=== PATIENT | female | born 1945 | race Caucasian/White ===

== ENCOUNTER 2016-07-07 14:32 | Emergency (ER) | payer OTHER ==
[~2016-07-07] VITALS: Wt 54.4 kg
[~2016-07-07 14:32] MED LIST: HYDROCODONE BIT1 T11; LIPITOR80 MG PO; LORATADINE10 M1 PO; MOBIC15 MG PO; NASONEX0.05 MG/AC NS; NEXIUM40 MG PO; PERCOCET 325 MG1 TA7 PO; PROTONIX20 MG PO; SINGULAIR10 M1 PO; TRAZADONE HYDR100 MG; TRAZODONE50 MG PO; VICODIN 5/500 505 MG PO; XANAX1 MG PO; ZOLOFT100 MG PO; ZOLOFT50 MG PO
[2016-07-07 15:01] LABS: BASO % 0.2 % (0.0-1.0); HEMOGLOBIN 14.4 g/dl (12.0-16.0); IG # 0.1 10*3/uL (0.0-0.1); LYMPH # 0.9 10*3/uL (1.3-4.4); LYMPH % 8.3 % (27.0-41.0); MEAN CELL VOLUME 91.1 fl (81.0-99.0); MEAN CORPUSCULAR HGB 29.8 pg (27.0-31.0); MEAN CORPUSCULAR HGB CONC 32.7 g/dl (33.0-37.0); MEAN PLATELET VOLUME 11.6 fl (9.6-12.3); MONO # 0.7 10*3/uL (0.1-1.0); MONO % 6.3 % (3.0-9.0); NEUT # 8.9 10*3/uL (2.3-7.9); NEUT % 84.7 % (47.0-73.0); PLATELET COUNT AUTOMATED 109 10*3/uL (130-400); RED BLOOD COUNT 4.83 10*6/uL (4.10-5.10); RED CELL DISTRI WIDTH 14.6 % (0-14.5); WHITE BLOOD COUNT 10.5 10*3/uL (4.8-10.8)
[2016-07-07 15:19] LABS: POTASSIUM 3.8 mmol/L (3.5-5.1)
[2016-07-07 15:20] LABS: TROPONIN I 2.61 ng/ml (<0.5)
[2016-07-07 17:03] VITALS: BP 117/87
== END 2016-07-07 18:50 | disposition short-term general hospital (02) ==
LOC: ED 14:32
PROVIDERS: Emergency Medicine
DX: J44.1 Chronic obstructive pulmonary disease with (acute) exacerbation (principal); I24.9 Acute ischemic heart disease, unspecified; I21.4 Non-ST elevation (NSTEMI) myocardial infarction; Z88.8 Allergy status to other drugs, medicaments and biological substances

== ENCOUNTER → 2017-02-21 | Outpatient (CLI) | payer OTHER ==
[2017-02-21 17:07] LABS: HEMATOCRIT 42.2 % (37.0-47.0); HEMOGLOBIN 13.9 g/dl (12.0-16.0); MEAN CELL VOLUME 93.4 fl (81.0-99.0); MEAN CORPUSCULAR HGB 30.8 pg (27.0-31.0); MEAN CORPUSCULAR HGB CONC 32.9 g/dl (33.0-37.0); MEAN PLATELET VOLUME 10.4 fl (9.6-12.3); RED BLOOD COUNT 4.52 10*6/uL (4.10-5.10); RED CELL DISTRI WIDTH 14.1 % (0-14.5); WHITE BLOOD COUNT 7.5 10*3/uL (4.8-10.8)
[2017-02-21 17:25] LABS: ALBUMIN 3.5 gm/dl (3.1-4.5); ALKALINE PHOSPHATASE 69 U/L (45-117); BUN 10 mg/dl (7-24); CHLORIDE 110 mmol/L (98-107); CHOLESTEROL 171 mg/dL (<200); CREATININE 0.95 mg/dL (0.55-1.02); HDL CHOLESTEROL 49 mg/dl (40-60); LDL CHOLESTEROL 105 mg/dL (9-159); SGOT/AST 16 IU/L (3-35); SGPT/ALT 19 U/L (12-78); SODIUM 142 mmol/L (136-145); TOTAL PROTEIN 6.6 gm/dL (6.4-8.2); TRIGLYCERIDES 84 mg/dl (<150); VLDL CHOLESTEROL 17 mg/dL (6-40)
== END | disposition home or self-care (01) ==
LOC: LAB 16:27
PROVIDERS: Internal Medicine
DX: M16.12 Unilateral primary osteoarthritis, left hip (principal); E78.5 Hyperlipidemia, unspecified; R73.01 Impaired fasting glucose

== ENCOUNTER 2017-07-11 17:25 | Emergency (ER) | payer OTHER ==
[~2017-07-11] VITALS: Ht 162.5 cm; Wt 62.6 kg
[2017-07-11 17:37] VITALS: BP 164/85
== END 2017-07-11 20:15 | disposition home or self-care (01) ==
LOC: ED 17:25
DX: G89.29 Other chronic pain (principal); M25.521 Pain in right elbow; R10.30 Lower abdominal pain, unspecified; F17.200 Nicotine dependence, unspecified, uncomplicated; Z88.8 Allergy status to other drugs, medicaments and biological substances; Z79.899 Other long term (current) drug therapy; W05.1XXA Fall from non-moving nonmotorized scooter, initial encounter; Y93.I9 Activity, other involving external motion; Y92.480 Sidewalk as the place of occurrence of the external cause; Y99.8 Other external cause status

== ENCOUNTER → 2017-07-11 | Outpatient (CLI) | payer OTHER | LOC: RAD 19:41 | DX: M19.012 Primary osteoarthritis, left shoulder (principal); M79.601 Pain in right arm; M79.602 Pain in left arm ==

== ENCOUNTER 2018-02-27 15:32 | Emergency (ER) | payer OTHER ==
[~2018-02-27] VITALS: Ht 162.5 cm; Wt 59.0 kg
[2018-02-27] MEDS ORDERED: PLAVIX75 M1 PO (15:43)
[2018-02-27] MEDS ORDERED: NEIGHBOR PO (15:43)
[2018-02-27] MEDS ORDERED: ASPIRIN CHEWABL81 MG PO (15:44)
[2018-02-27] MEDS ORDERED: TOPROL XL25 MG PO (15:44)
[2018-02-27 17:07] LABS: BASO % 0.5 % (0.0-1.0); EOS # 0.2 10*3/uL (0.0-0.4); EOS % 2.5 % (1.0-4.0); HEMATOCRIT 40.1 % (37.0-47.0); HEMOGLOBIN 13.5 g/dl (12.0-16.0); LYMPH # 2.2 10*3/uL (1.3-4.4); LYMPH % 24.9 % (27.0-41.0); MEAN CELL VOLUME 94.1 fl (81.0-99.0); MEAN CORPUSCULAR HGB 31.7 pg (27.0-31.0); MEAN CORPUSCULAR HGB CONC 33.7 g/dl (33.0-37.0); MEAN PLATELET VOLUME 10.4 fl (9.6-12.3); MONO # 0.6 10*3/uL (0.1-1.0); MONO % 6.2 % (3.0-9.0); NEUT # 5.8 10*3/uL (2.3-7.9); NEUT % 65.6 % (47.0-73.0); PLATELET COUNT AUTOMATED 161 10*3/uL (130-400); RED BLOOD COUNT 4.26 10*6/uL (4.10-5.10); WHITE BLOOD COUNT 8.9 10*3/uL (4.8-10.8)
[2018-02-27 17:15] LABS: ACT PARTIAL THROMBO TIME 21.9 SECONDS (20.8-31.5)
[2018-02-27 17:20] VITALS: BP 152/72
[2018-02-27 17:21] LABS: ALKALINE PHOSPHATASE 50 U/L (45-117); BUN 28 mg/dl (7-24); CHLORIDE 112 mmol/L (98-107); CREATININE 1.27 mg/dL (0.55-1.02); LIPASE 260 U/L (73-393); POTASSIUM 4.5 mmol/L (3.5-5.1); SGOT/AST 14 IU/L (3-35); SGPT/ALT 12 U/L (12-78); SODIUM 139 mmol/L (136-145); TOTAL PROTEIN 6.8 gm/dL (6.4-8.2)
[2018-02-27 17:22] LABS: TROPONIN I < 0.015 ng/ml (<0.045)
== END 2018-02-27 17:12 ==
LOC: ED 15:32
PROVIDERS: Emergency Medicine
DX: S09.90XA Unspecified injury of head, initial encounter (principal); T14.90XA Injury, unspecified, initial encounter; N64.4 Mastodynia; M25.532 Pain in left wrist; R10.9 Unspecified abdominal pain; I25.2 Old myocardial infarction; J44.9 Chronic obstructive pulmonary disease, unspecified; Z88.8 Allergy status to other drugs, medicaments and biological substances; Z79.899 Other long term (current) drug therapy; Z79.82 Long term (current) use of aspirin; V87.7XXA Person injured in collision between other specified motor vehicles (traffic), initial encounter; Y93.89 Activity, other specified; Y92.89 Other specified places as the place of occurrence of the external cause; Y99.8 Other external cause status

== ENCOUNTER → 2018-07-28 | Outpatient (CLI) | payer OTHER ==
[~2018-07-28] MED LIST changes: +ASPIRIN CHEWABL81 MG PO; +NEIGHBOR PO; +PLAVIX75 M1 PO; +TOPROL XL25 MG PO
== END | disposition home or self-care (01) ==
LOC: RAD 14:29
DX: M16.0 Bilateral primary osteoarthritis of hip (principal)

== ENCOUNTER 2020-10-16 21:57 | Emergency (ER) | payer OTHER ==
[~2020-10-16] VITALS: Ht 162.5 cm; Wt 54.9 kg
[2020-10-17 00:01] LABS: BASO # 0.1 10*3/uL (0.0-0.1); BASO % 0.5 % (0.0-1.0); EOS # 0.2 10*3/uL (0.0-0.4); EOS % 1.7 % (1.0-4.0); HEMATOCRIT 49.3 % (37.0-47.0); LYMPH # 2.9 10*3/uL (1.3-4.4); LYMPH % 31.4 % (27.0-41.0); MEAN CELL VOLUME 93.7 fl (81.0-99.0); MEAN CORPUSCULAR HGB 31.4 pg (27.0-31.0); MEAN CORPUSCULAR HGB CONC 33.5 g/dl (33.0-37.0); MEAN PLATELET VOLUME 9.9 fl (9.6-12.3); MONO # 0.5 10*3/uL (0.1-1.0); MONO % 5.8 % (3.0-9.0); NEUT # 5.5 10*3/uL (2.3-7.9); NEUT % 60.4 % (47.0-73.0); PLATELET COUNT AUTOMATED 182 10*3/uL (130-400); RED BLOOD COUNT 5.26 10*6/uL (4.10-5.10); RED CELL DISTRI WIDTH 13.3 % (0-14.5); WHITE BLOOD COUNT 9.2 10*3/uL (4.8-10.8)
[2020-10-17 00:02] LABS: BILIRUBIN Negative (Negative); BLOOD Negative (Negative); CLARITY Clear (Clear); COLOR Yellow (Yellow); GLUCOSE Negative (Negative); KETONE Negative (Negative); LEUKO ESTERASE Trace (Negative); NITRITE Negative (Negative); UROBILINOGEN 0.2 E.U./dl (0.0-1.0)
[2020-10-17 00:10] LABS: BACTERIA 3+
[2020-10-17 00:18] LABS: ALBUMIN 4.2 gm/dl (3.1-4.5); ALKALINE PHOSPHATASE 88 U/L (45-117); BUN 9 mg/dl (7-24); CHLORIDE 102 mmol/L (98-107); CREATININE 0.78 mg/dL (0.55-1.02); POTASSIUM 3.6 mmol/L (3.5-5.1); SGOT/AST 19 IU/L (3-35); SGPT/ALT 16 U/L (12-78); SODIUM 138 mmol/L (136-145); TOTAL PROTEIN 8.1 gm/dL (6.4-8.2)
[2020-10-17 00:19] LABS: ETHYL ALCOHOL < 3.0 mg/dl (<3); TROPONIN I < 0.015 ng/ml (<0.045)
[2020-10-17 06:09] VITALS: BP 99/56
== END 2020-10-17 07:14 | disposition short-term general hospital (02) ==
LOC: ED 21:57
PROVIDERS: Emergency Medicine
DX: T85.09XA Other mechanical complication of ventricular intracranial (communicating) shunt, initial encounter (principal); R41.82 Altered mental status, unspecified; G89.29 Other chronic pain; I25.2 Old myocardial infarction; Z98.51 Tubal ligation status; Z79.899 Other long term (current) drug therapy; Z79.82 Long term (current) use of aspirin; Z88.8 Allergy status to other drugs, medicaments and biological substances; Y92.89 Other specified places as the place of occurrence of the external cause

== ENCOUNTER → 2022-04-21 | Outpatient (CLI) | payer OTHER ==
[2022-04-21 17:17] LABS: HEMATOCRIT 48.6 % (37.0-47.0); MEAN CELL VOLUME 92.9 fl (81.0-99.0); MEAN CORPUSCULAR HGB 30.6 pg (27.0-31.0); MEAN CORPUSCULAR HGB CONC 32.9 g/dl (33.0-37.0); MEAN PLATELET VOLUME 10.3 fl (9.6-12.3); RED BLOOD COUNT 5.23 10*6/uL (4.10-5.10); RED CELL DISTRI WIDTH 14.1 % (0-14.5); WHITE BLOOD COUNT 9.1 10*3/uL (4.8-10.8)
[2022-04-21 17:38] LABS: CREATININE 1.11 mg/dL (0.55-1.02); POTASSIUM 4.2 mmol/L (3.5-5.1); TOTAL PROTEIN 7.3 gm/dL (6.4-8.2)
== END | disposition home or self-care (01) ==
LOC: LAB 16:23
PROVIDERS: ATTEND Pain Medicine Interventional Pain Medicine
DX: M19.012 Primary osteoarthritis, left shoulder (principal); M25.712 Osteophyte, left shoulder; M85.812 Other specified disorders of bone density and structure, left shoulder; F41.9 Anxiety disorder, unspecified; F32.A Depression, unspecified; Z12.39 Encounter for other screening for malignant neoplasm of breast; M54.9 Dorsalgia, unspecified; G89.29 Other chronic pain; J96.10 Chronic respiratory failure, unspecified whether with hypoxia or hypercapnia; J44.9 Chronic obstructive pulmonary disease, unspecified; I25.10 Atherosclerotic heart disease of native coronary artery without angina pectoris; Z12.11 Encounter for screening for malignant neoplasm of colon; Z23 Encounter for immunization; N32.81 Overactive bladder; M79.606 Pain in leg, unspecified; G47.00 Insomnia, unspecified; R73.01 Impaired fasting glucose; I10 Essential (primary) hypertension; E78.5 Hyperlipidemia, unspecified; K21.9 Gastro-esophageal reflux disease without esophagitis

== ENCOUNTER 2022-05-24 15:21 | Emergency (ER) | payer OTHER ==
[~2022-05-24] VITALS: Wt 61.2 kg
[2022-05-24 16:02] VITALS: BP 136/70
[2022-05-24] MEDS ORDERED: ERYTHROMYCIN OPH1 GM OPH (19:32)
== END 2022-05-24 19:44 | disposition home or self-care (01) ==
LOC: ED 15:21
DX: H10.13 Acute atopic conjunctivitis, bilateral (principal); Z88.8 Allergy status to other drugs, medicaments and biological substances; Z79.899 Other long term (current) drug therapy; Z79.82 Long term (current) use of aspirin; Z98.51 Tubal ligation status